=== PATIENT | female | born 1945 | race Caucasian/White ===

== ENCOUNTER 2017-11-19 23:24 | Emergency (ER) | payer MEDICARE, OTHER ==
[2017-11-19] MEDS ORDERED: Ketorolac 60 MG/2 ML SDV IM ONE (23:56)
[2017-11-19] MEDS ORDERED: Acetaminophen/HYDROcodone 325-5 MG Tab PO ONE (23:56)
--- NOTE | 2017-11-20 00:56 | EDM.PDOC ---
ED HPI GENERAL MEDICAL PROBLEM - General Chief Complaint: Lower Extremity Injury/Pain Stated Complaint: LEG PAIN Time Seen by Provider: 11/19/17 23:47 Source of Information: Reports: Patient History Limitations: Reports: No Limitations - History of Present Illness INITIAL COMMENTS - FREE TEXT/NARRATIVE: The patient has been having pain to the back of her left knee since . She did not injure it by twisting or falling. She has some swelling to the back of her leg also. She has no history of DVT or PE. She saw Bernarda Shi today and she ordered an US for tomorrow. She was worried about a Carpenter' s cyst. The pain has gotten worse tonight. She has no chest pain or shortness of breath. Onset: Gradual Duration: Week(s): Location: Reports: Lower Extremity, Left (Behind the knee) Quality: Reports: Sharp Severity: Moderate Improves with: Reports: Immobilization Worsens with: Reports: Movement Context: Denies: Trauma Associated Symptoms: Reports: No Other Symptoms Leg Pain Score (Numeric/FACES): 9 - Related Data Allergies Allergy/AdvReac Type Severity Reaction Status Date / Time celecoxib [From Celebrex] Allergy Rash Verified 11/19/17 23:42 Home Meds: Home Meds amLODIPine Besylate/Benazepril [Amlodipine-Benazepril 5-10 MG] 1 tab PO DAILY [History] Hydrocodone/Acetaminophen [Hydrocodon-Acetaminophen 5-325] 1 - 2 each PO Q6HR PRN #20 tablet 11/20/17 [Rx] Hydrocodone/Acetaminophen [Hydrocodon-Acetaminophen 5-325] 1 - 2 each PO Q6HR PRN #6 tablet 11/20/17 [Rx] Past Medical History Cardiovascular History: Reports: Arrhythmia, High Cholesterol, Hypertension, Pacemaker Endocrine/Metabolic History: Reports: Obesity/BMI 30+ - Past Surgical History HEENT Surgical History: Reports: Cataract Surgery, Tonsillectomy Female Surgical History: Reports: D&C Social & Family History - Tobacco Use Smoking Status *Q: Never Smoker - Caffeine Use Caffeine Use: Reports: Coffee - Recreational Drug Use Recreational Drug Use: No - Living Situation & Occupation Living situation: Reports: , with Spouse Occupation: Retired Review of Systems - Review of Systems Review Of Systems: See Below Constitutional: Reports: No Symptoms Eyes: Reports: No Symptoms Ears: Reports: No Symptoms Nose: Reports: No Symptoms Mouth/Throat: Reports: No Symptoms Respiratory: Reports: No Symptoms Cardiovascular: Reports: No Symptoms GI/Abdominal: Reports: No Symptoms Genitourinary: Reports: No Symptoms Musculoskeletal: Reports: Other (Left knee pain) ED EXAM, GENERAL - Physical Exam Exam: See Below Exam Limited By: No Limitations General Appearance: Alert, No Apparent Distress Ears: Normal External Exam Nose: Normal Inspection Throat/Mouth: Inflammation Head: Normocephalic Neck: Normal Inspection Respiratory/Chest: No Respiratory Distress GI/Abdominal: Soft, Non-Tender, No Organomegaly, No Mass Extremities: Other (Mild edema to the posterior knee with pain upon palpation. Good sensation and puleses distally.) Course - Vital Signs Last Recorded V/S: Last Vital Signs Temp 97.8 F 11/19/17 23:38 Pulse 67 11/19/17 23:38 Resp 18 11/19/17 23:38 BP 184/102 H 11/19/17 23:38 Pulse Ox 95 11/19/17 23:38 - Orders/Labs/Meds Meds: Medications Discontinued Medications Generic Name Dose Route Start Last Admin Trade Name Gianlucaq PRN Reason Stop Dose Admin Hydrocodone Bitart/Acetaminophen 1 tab 11/19/17 23:56 11/20/17 00:08 Glidden 325-5 Mg PO 11/19/17 23:57 1 tab ONETIME ONE Administration Ketorolac Tromethamine 60 mg 11/19/17 23:56 11/20/17 00:08 Toradol IM 11/19/17 23:57 60 mg ONETIME ONE Administration - Re-Assessments/Exams Free Text/Narrative Re-Assessment/Exam: 11/20/17 00:55 I ordered a shot of toradol and hydrocodone 5mg by mouth for pain. She feels better and would like to go. Departure - Departure Time of Disposition: 01:00 Disposition: Home, Self-Care 01 Condition: Good Clinical Impression: Left knee pain Qualifiers: Chronicity: acute Qualified Code(s): M25.562 - Pain in left knee - Discharge Information Prescriptions: Hydrocodone/Acetaminophen [Hydrocodon-Acetaminophen 5-325] 1 - 2 each PO Q6HR PRN #6 tablet PRN Reason: Pain Hydrocodone/Acetaminophen [Hydrocodon-Acetaminophen 5-325] 1 - 2 each PO Q6HR PRN #20 tablet PRN Reason: Pain Referrals: Bernarda Shi PA [Primary Care Provider] - Additional Instructions: Take your medication as prescribed. You may take motrin or aleve for pain. You may also take the hydrocodone for pain. Get the ultrasound tomorrow and follow up with Bernarda Shi. Please return if you are worse.
[2017-11-20] MEDS ORDERED: Take Home: Acetaminophen/oxyCODONE 325-5 MG, 5 Tab Pack ONE (00:57)
[2017-11-20 01:28] VITALS: BP 146/84
== END 2017-11-20 01:27 | disposition home or self-care (01) ==
LOC: JD.ED 23:24
DX: M25.562 Pain in left knee (principal); I10 Essential (primary) hypertension; E78.00 Pure hypercholesterolemia, unspecified; E66.9 Obesity, unspecified; Z88.1 Allergy status to other antibiotic agents
CPT/HCPCS: 96372; 99283; A9270; J1885

== ENCOUNTER 2017-11-25 11:50 | Emergency (ER) | payer MEDICARE, OTHER ==
[2017-11-25 12:02] VITALS: BP 165/99
--- NOTE | 2017-11-25 12:05 | EDM.PDOC ---
ED HPI GENERAL MEDICAL PROBLEM - General Chief Complaint: Lower Extremity Injury/Pain Stated Complaint: POSS CYST IN BACK OF KNEE Time Seen by Provider: 11/25/17 12:05 Source of Information: Reports: Patient History Limitations: Reports: No Limitations - History of Present Illness INITIAL COMMENTS - FREE TEXT/NARRATIVE: Patient is a 72-year-old female presents ED complaining of left posterior knee pain. Patient was seen on the 19 of November with ultrasound obtained the following day. Ultrasound revealed popliteal cyst. Patient since diagnosed has been taking [employer] one tab every 6 hours with minimal relief. Pain is worsened with lifting and also with sitting. She has no discomfort with ambulating. Currently states pain is a 10 out of 10. She did take an [employer] one tab approximately 11:00 which is approximately one hour prior to arrival. She has an appointment with Dr. Levi December 04 but states she cannot wait until then. Both her and the are upset and are wishing for an earlier appointment. There is no increased swelling, sensory/motor deficits, chest pain , shortness of breath. She does have a history of DVT left leg quite some time ago and states symptoms she is currently experiencing are not the same. She has not been taking any anti-inflammatories. Left Knee Pain Score (Numeric/FACES): 10 - Related Data Allergies Allergy/AdvReac Type Severity Reaction Status Date / Time celecoxib [From Celebrex] Allergy Rash Verified 11/25/17 12:01 Home Meds: Home Meds amLODIPine Besylate/Benazepril [Amlodipine-Benazepril 5-10 MG] 1 tab PO DAILY [History] Hydrocodone/Acetaminophen [Hydrocodon-Acetaminophen 5-325] 1 - 2 each PO Q6HR PRN #6 tablet 11/20/17 [Rx] Past Medical History Cardiovascular History: Reports: Arrhythmia, High Cholesterol, Hypertension, Pacemaker Endocrine/Metabolic History: Reports: Obesity/BMI 30+ - Past Surgical History HEENT Surgical History: Reports: Cataract Surgery, Tonsillectomy Female Surgical History: Reports: D&C Social & Family History - Caffeine Use Caffeine Use: Reports: Coffee - Living Situation & Occupation Living situation: Reports: , with Spouse Occupation: Retired Review of Systems - Review of Systems Review Of Systems: ROS reveals no pertinent complaints other than HPI. ED EXAM, GENERAL - Physical Exam Exam: See Below Exam Limited By: No Limitations General Appearance: Alert, WD/WN, No Apparent Distress, Other (Laying in bed in no acute distress.) Ears: Hearing Grossly Normal Nose: Normal Inspection Throat/Mouth: Normal Voice, No Airway Compromise Neck: Normal Inspection, Supple Respiratory/Chest: No Respiratory Distress, Lungs Clear, Normal Breath Sounds, No Accessory Muscle Use Cardiovascular: Normal Peripheral Pulses, Regular Rate, Rhythm, No Murmur Peripheral Pulses: 2+: Posterior Tibial (L), 4+: Brachial (L) GI/Abdominal: Normal Bowel Sounds Extremities: Normal Inspection, No Pedal Edema, Normal Capillary Refill, Limited Range of Motion, Other (mild tenderness to the posterior knee with palpation. unable to palpate any abnormalities. ) Neurological: Alert, Oriented, CN II-XII Intact, Normal Cognition, No Motor/ Sensory Deficits Psychiatric: Normal Affect, Normal Mood Skin Exam: Warm, Dry, Intact, Normal Color Course - Vital Signs Last Recorded V/S: Last Vital Signs Temp 98.0 F 11/25/17 11:56 Pulse 99 11/25/17 11:56 Resp 20 11/25/17 11:56 BP 165/99 H 11/25/17 11:56 Pulse Ox 97 11/25/17 11:56 - Re-Assessments/Exams Free Text/Narrative Re-Assessment/Exam: Reviewed ultrasound obtained 11/20/2017 impression: Small popliteal cyst. Patient is scheduled to see Dr. Levi on December 04. Nursing staff will call Dr. Levi's office, Dr. Kerns's office, and Dr. Villagomez's office to see about earlier appointment. 11/25/17 13:07 Per nursing staff patient will be seeing Dr. Levi at 230 pm this coming Saturday. Patient will be discharged home with instructions as documented. Departure - Departure Time of Disposition: 13:09 Disposition: Home, Self-Care 01 Condition: Good Clinical Impression: Left knee pain Qualifiers: Chronicity: acute Qualified Code(s): M25.562 - Pain in left knee Popliteal cyst Qualifiers: Laterality: left Qualified Code(s): M71.22 - Synovial cyst of popliteal space [ Carpenter], left knee - Discharge Information Instructions: Knee Pain, Adult Referrals: Bernarda Shi PA [Primary Care Provider] - Forms: ED Department Discharge Additional Instructions: See Dr. Levi at 230 pm this coming Saturday for reevaluation of popliteal cysts. Continue taking all home medications as prescribed. May use aleve 1 tab twice a day for pain management. Refrain from any activities that cause worsening pain. Return to the E.D. if you develop any new or worsening symptoms.
== END 2017-11-25 13:30 | disposition home or self-care (01) ==
LOC: JD.ED 11:50
DX: M71.22 Synovial cyst of popliteal space [Baker], left knee (principal); E78.00 Pure hypercholesterolemia, unspecified; I10 Essential (primary) hypertension; Z88.8 Allergy status to other drugs, medicaments and biological substances; Z79.899 Other long term (current) drug therapy; Z95.0 Presence of cardiac pacemaker
CPT/HCPCS: 99283

== ENCOUNTER 2018-08-16 07:46 | Emergency (ER) | payer MEDICARE, OTHER ==
[2018-08-16 08:02] VITALS: BP 179/82
--- NOTE | 2018-08-16 08:03 | EDM.PDOC ---
ED HPI GENERAL MEDICAL PROBLEM - General Chief Complaint: Upper Extremity Injury/Pain Stated Complaint: RED AND PAINFUL LT ARM Time Seen by Provider: 08/16/18 07:55 - History of Present Illness INITIAL COMMENTS - FREE TEXT/NARRATIVE: 73-year-old female presents emergency room with left arm pain. This is been going on for several days usually involves her arm below the elbow. She notices numbness in her fingers mostly thumb index ray and to a lesser degree her ring finger and very little under pinky finger. She has not developed weakness in her hand yet. She's tried a heating pad to the area with some success. She has not had problems like this in the past Left Arm Pain Score (Numeric/FACES): 4 - Related Data Allergies Allergy/AdvReac Type Severity Reaction Status Date / Time celecoxib [From Celebrex] Allergy Rash Verified 08/16/18 08:02 Home Meds: Home Meds amLODIPine Besylate/Benazepril [Amlodipine-Benazepril 5-10 MG] 5 - 10 mg PO DAILY 06/30/16 [History] Cholecalciferol (Vitamin D3) [Vitamin D3] 1,000 mg PO DAILY 06/05/18 [History] hydroCHLOROthiazide [Hydrochlorothiazide] 12.5 mg PO DAILY 06/05/18 [History] Past Medical History Cardiovascular History: Reports: Arrhythmia, High Cholesterol, Hypertension, Pacemaker [employer]ATOR History: Reports: Musculoskeletal History: Reports: Other (See Below) Other Musculoskeletal History: buldging disc Endocrine/Metabolic History: Reports: Obesity/BMI 30+ - Infectious Disease History Infectious Disease History: Reports: Shingles - Past Surgical History HEENT Surgical History: Reports: Cataract Surgery, Tonsillectomy Female Surgical History: Reports: D&C Social & Family History - Caffeine Use Caffeine Use: Reports: None - Living Situation & Occupation Living situation: Reports: , with Spouse Occupation: Retired Review of Systems - Review of Systems Review Of Systems: See Below Constitutional: Reports: No Symptoms Ears: Reports: No Symptoms Nose: Reports: No Symptoms Mouth/Throat: Reports: No Symptoms Respiratory: Reports: No Symptoms Cardiovascular: Reports: No Symptoms GI/Abdominal: Reports: No Symptoms ED EXAM, GENERAL - Physical Exam Exam: See Below Exam Limited By: No Limitations General Appearance: Alert, No Apparent Distress Neck: Normal Inspection, Supple, Non-Tender, Full Range of Motion Respiratory/Chest: No Respiratory Distress, Lungs Clear, Normal Breath Sounds, No Accessory Muscle Use, Chest Non-Tender Cardiovascular: Normal Peripheral Pulses, Regular Rate, Rhythm, No Edema, No Gallop, No JVD, No Murmur, No Rub Extremities: Other (Vascular status of the hand is normal tendon function appears to be intact no obvious deformity) Neurological: Other (Semination left upper extremity shows a positive Tinel sign with distal paresthesias and to a lesser degree proximal paresthesias Phalen's makes the pain worse as does reversed Phalen's.) EKG INTERPRETATION EKG Date: 08/16/18 Rhythm: Other (Ventricular paced) [place]: LAD-Left [place] Deviation QRS: Wide ST-T: Normal (No evidence of ischemia with a paced rhythm) EKG Interpretation Comments: Abnormal EKG nonischemic Course - Vital Signs Last Recorded V/S: Last Vital Signs Temp 36.2 C 08/16/18 07:55 Pulse 82 08/16/18 07:55 Resp 16 08/16/18 07:55 BP 179/82 H 08/16/18 07:55 Pulse Ox 96 08/16/18 07:55 - Orders/Labs/Meds Orders: Active Orders 24 hr Category Date Time Status EKG Documentation Completion [RC] STAT Care 08/16/18 08:03 Active Durable Medical Equipment for Discharge [DME for Oth 08/16/18 08:03 Ordered Discharge] [COMM] Stat - Re-Assessments/Exams Free Text/Narrative Re-Assessment/Exam: 08/16/18 08:07 This is most likely related to carpal tunnel syndrome we'll check an EKG just to make sure she doesn't have cardiac concerns 08/16/18 09:03 Patient felt much better after carpal tunnel splint was placed Departure - Departure Time of Disposition: 09:03 Disposition: Home, Self-Care 01 Clinical Impression: Carpal tunnel syndrome of left wrist - Discharge Information Referrals: Jennifer Hurtado PA-C [Primary Care Provider] - Forms: ED Department Discharge Additional Instructions: Wear the splint at all times until better then after this improves wear it at night indefinitely. Tylenol as needed for pain. Follow-up in the clinic this next week. Return to the emergency room with any questions problems worsening symptoms - My Orders Last 24 Hours: My Active Orders 08/16/18 08:03 EKG Documentation Completion [RC] STAT Durable Medical Equipment for Discharge [DME for Discharge] [COMM] Stat - Assessment/Plan Last 24 Hours: My Active Orders 08/16/18 08:03 EKG Documentation Completion [RC] STAT Durable Medical Equipment for Discharge [DME for Discharge] [COMM] Stat
== END 2018-08-16 09:17 | disposition home or self-care (01) ==
LOC: JD.ED 07:46
DX: G56.02 Carpal tunnel syndrome, left upper limb (principal); I10 Essential (primary) hypertension; E78.00 Pure hypercholesterolemia, unspecified; Z79.899 Other long term (current) drug therapy; Z88.1 Allergy status to other antibiotic agents
CPT/HCPCS: 93005; 93010; 99282; 99283-25

== ENCOUNTER 2022-03-20 10:56 | Emergency (ER) | payer MEDICARE, OTHER ==
[2022-03-20] MEDS ORDERED: Sodium Chloride 0.9% 10 ML Syringe FLUSH PRN (12:04)
[2022-03-20 13:53] VITALS: BP 129/71; PULSE 52
== END 2022-03-20 13:50 | disposition home or self-care (01) ==
LOC: SUPCPDRO 10:56 → JD.ED 10:56
DX: R42 Dizziness and giddiness (principal); I10 Essential (primary) hypertension; E66.9 Obesity, unspecified; Z68.38 Body mass index [BMI] 38.0-38.9, adult; Z88.1 Allergy status to other antibiotic agents; Z79.899 Other long term (current) drug therapy
CPT/HCPCS: 36415; 70450; 80053; 83735; 84484; 85025; 93005; 99284; A9270; J3490